=== PATIENT | male | born 1940 | race Two or more races ===

== ENCOUNTER 2016-03-07 06:00 | Emergency (ER) | payer MEDICARE ==
[~2016-03-07] VITALS: Ht 172.7 cm; Wt 85.7 kg
[2016-03-07 06:55] VITALS: BP 155/77
== END 2016-03-07 08:24 | disposition home or self-care (01) ==
LOC: ER 06:08
DX: G89.29 Other chronic pain (principal); M54.2 Cervicalgia; E11.9 Type 2 diabetes mellitus without complications; M19.93 Secondary osteoarthritis, unspecified site
CPT/HCPCS: 72050

== ENCOUNTER 2024-10-24 09:43 | Inpatient (IN) | payer OTHER ==
[~2024-10-24] VITALS: Ht 172.7 cm; Wt 79.7 kg
--- NOTE | 2024-10-24 09:57 | ED.PDOC ---
SOB-HPI HPI Comments This is a 84 year old male presenting to the ED with chief complaint of SOB. Patient reports that he has been experiencing SOB at rest for the past week. Patient denies any chest pain, cough, wheezing, dizziness, N/V, headache, or syncope. Chief Complaint: Shortness of Breath Time Seen by MD: 09:55 Primary Care Provider: OOT Reviewed notes: Nurses Notes, Medications, Allergies Information Source: Patient Mode of Arrival: Ambulatory Severity: Moderate Timing: Hours Duration: Since onset Context: At Rest PE Risk Factors: None History of: None Prehospital treatment: None Modifying Factors: Nothing Associated Signs and Symptoms: None Past Medical History PAST MEDICAL HISTORY: DM Surgical History: Denies all surgeries Family History Family History: Reviewed,noncontributory to illness, Unknown Social History Smoker: Non-Smoker Alcohol: Denies ETOH Use Drugs: Denies Drug Use Lives In: Home Constitutional: denies: chills, diaphoresis, fatigue, fever, malaise, sweats, weakness, others EENTM: denies: blurred vision, double vision, ear bleeding, ear discharge, ear drainage, ear pain, ear ringing, eye pain, eye redness, hearing loss, mouth pain, mouth swelling, nasal discharge, nose bleeding, nose congestion, nose pain, photophobia, tearing, throat pain, throat swelling, voice changes, others Respiratory: reports: SOB at rest, shortness of breath; denies: cough, hemoptysis, orthopnea, SOB with excertion, stridor, wheezing, others Cardiovascular: denies: chest pain, dizzy spells, diaphoresis, Dyspnea on exertion, edema, irregular heart beat, left arm pain, lightheadedness, palpitations, PND, syncope, others Gastrointestinal: denies: abdomen distended, abdominal pain, blood streaked bowels, constipated, diarrhea, dysphagia, difficulty swallowing, hematemesis, melena, nausea, poor appetite, poor fluid intake, rectal bleeding, rectal pain, vomiting, others Genitourinary: denies: burning, dysuria, flank pain, frequency, hematuria, incontinence, penile discharge, penile sore, pain, testicle pain, testicle swelling, urgency, others Neurological: denies: dizziness, fainting, headache, left sided numbness, left sided weakness, numbness, paresthesia, pre-existing deficit, right sided numbness, right sided weakness, seizure, speech problems, tingling, tremors, weakness, others Musculoskeletal: denies: back pain, gout, joint pain, joint swelling, muscle pain, muscle stiffness, neck pain, others Integumetry: denies: bruises, change in color, change in hair/nails, dryness, laceration, lesions, lumps, rash, wounds, others Allergic/Immunocompromised: denies: Difficulty Healing, Frequent Infections, Hives, Itching, others Hematologic/Lymphatic: denies: anemia, blood clots, easy bleeding, easy bruising, swollen glands, others Endocrine: denies: excessive hunger, excessive sweating, excessive thirst, excessive urination, flushing, intolerance to cold, intolerance to heat, unexplained weight gain, unexplained weight loss, others Psychiatric: denies: anxiety, bipolar disorder, depression, hopeless, panic disorder, schizophrenia, sleepless, suicidal, others All Other Systems: Reviewed and Negative Physical Exam General Appearance: Moderate Distress, Normal HEENT: Normal ENT Inspection, Pharynx Normal, TMs Normal Neck: Full Range of Motion, Non-Tender, Normal, Normal Inspection Respiratory: Chest Non-Tender, No Accessory Muscle Use, No Respiratory Distress Cardiovascular: Bradycardia, No Edema, No JVD, No Murmur, No Gallop, Normal Peripheral Pulses Breast Exam: Deferred Gastrointestinal: No Organomegaly, Non Tender, No Pulsatile Mass, Normal Bowel Sounds, Soft Genitalia: Deferred Pelvic: Deferred Rectal: Deferred Extremities: No calf tenderness, Normal capillary refill, Normal range of motion, Non-tender, No pedal edema Musculoskeletal : Apperance: Normal Neurologic: Alert, herd tester II-XII nml as Tested, No Motor Deficits, Normal Affect, Normal Mood, No Sensory Deficits Cerebellar Function: NOT DONE Reflexes: NOT DONE Skin: Dry, Normal Color, Warm Peripheral Pulses: 3+ Radial (R), 3+ Radial (L) Lymphatic: No Adenopathy EKG EKG : Pulse Rate (adult): 55 [place]: Normal Cardiac Rhythm: NSR Block: None Hypertrophy: None ST: Normal Was a procedure done? Was a procedure done?: No Differential Dx Differential Diagnosis: Anxiety, Asthma, Bronchitis, CHF, COPD X-Ray, Labs, Meds, VS Vital Signs Date Time Temp Pulse Resp B/P (MAP) Pulse Ox O2 Delivery O2 Flow Rate FiO2 10/24/24 10:03 55 10/24/24 10:01 55 10/24/24 09:44 97.8 53 16 135/51 100 97.8 Lab Test 10/24/24 11:11 10/24/24 10:13 Range/Units Troponin I High Sensitivity 4 3 L </=54 ng/L White Blood Count 7.4 4.4-10.8 10^3/uL Red Blood Count 4.92 4.5-5.90 10^6/uL Hemoglobin 11.3 L 13.5-17.5 g/dL Hematocrit 36.0 L 41.0-53.0 % Mean Corpuscular Volume 73.2 L 80.0-100.0 fL Mean Corpuscular Hemoglobin 23.0 L 28.0-32.0 pg Mean Corpuscular Hemoglobin Concent 31.3 L 32.0-36.0 g/dL Red Cell Distribution Width 17.4 H 11.8-14.3 % Platelet Count 366 140-450 10^3/uL Mean Platelet Volume 7.6 6.9-10.8 fL Neutrophils (%) (Auto) 71.8 37.0-80.0 % Lymphocytes (%) (Auto) 18.7 10.0-50.0 % Monocytes (%) (Auto) 8.3 0.0-12.0 % Eosinophils (%) (Auto) 0.7 0.0-7.0 % Basophils (%) (Auto) 0.5 0.0-2.0 % Neutrophils # (Auto) 5.3 1.6-8.6 10 ^3/uL Lymphocytes # (Auto) 1.4 0.4-5.4 10 ^3/uL Monocytes # (Auto) 0.6 0-1.3 10 ^3/uL Eosinophils # (Auto) 0.1 0-0.8 10 ^3/uL Basophils # (Auto) 0 0-0.2 10 ^3/uL Nucleated Red Blood Cells 0.1 % Sodium Level 136 136-145 mmol/L Potassium Level 4.7 3.5-5.1 mmol/L Chloride Level 103 98-107 mmol/L Carbon Dioxide Level 23 20-31 mmol/L Anion Gap 10 5-15 Blood Urea Nitrogen 24 H 9-23 mg/dL Creatinine 1.38 H 0.700-1.30 mg/dL Glomerular Filtration Rate Calc 51 >90 mL/min BUN/Creatinine Ratio 17.4 10.0-20.0 Serum Glucose 245 H 74-106 mg/dL Hemoglobin A1c 11.0 H <5.7 % A1C Calcium Level 9.3 8.7-10.4 mg/dL [facility] [address] [place] [id number] Ph: [phone] DIAGNOSTIC IMAGING Diagnostic Imaging Report : [id number] Signed PATIENT: MICHELLE CAZARES ACCT: [id number] UNIT: [id number] : 1940 LOC: ER ROOM / BED: / AGE / SEX: 84 / M ADM STATUS: REG ER SERVICE 1001 ORDERING PHYSICIAN: MILLA CLARK MD PROCEDURE(s): CXRP - CHEST PORTABLE REASON: sob ORDER NUMBER(s): [id number], ACCESSION NUMBER(s): [id number] EXAM: XY CHEST PORTABLE HISTORY: sob COMPARISON: None TECHNIQUE: Portable AP view of the chest was performed. FINDINGS: No pneumothorax, consolidative infiltrates, or pulmonary edema. The heart is not enlarged. There is thoracic degenerative disc disease. There is slight thoracic scoliosis. IMPRESSION: No acute intrathoracic process. ATED BY: PETER AVILEZ MD DICTATED DATE/TIME: 10/24/24 1040 SIGNED BY: PETER AVILEZ MD SIGNED DATE/TIME: 10/24/24 1040 CC: Patient alert. Complaining of shortness a breath. Chest x-ray reviewed does not show any acute process. WBC within normal limits. Cardiac marker within normal limits. Heart rate is on the low side. Possibly from beta-sergo. Blood sugar elevated. Kidney function elevated. Explained to the patient. Continue monitoring. Time of 1ST Reevaluation: 10:55 Reevaluation 1ST: Unchanged Patient Education/Counseling: Diagnosis, Treatment Family Education/Counseling: No Family Present SEPSIS Sepsis Screen Date sepsis recognized/suspect: Oct 24, 2024 Time Sepsis recognized/suspect: 0947 Recent Procedure: No On Antibiotic Therapy: No Respiratory Rate >20: No Heart Rate >90: No Temp<36 C (96.8 F) or >38.3 C: No SBP <90 or MAP <65 mmHG: No New Acute Mental Status Change: No Is the patient on CPAP, BIPAP,: No Physician Orders Chest Portable (10/24/24 10:01) Vital Signs Date Time Temp Pulse Resp B/P (MAP) Pulse Ox O2 Delivery O2 Flow Rate FiO2 10/24/24 10:03 55 10/24/24 10:01 55 10/24/24 09:44 97.8 53 16 135/51 100 97.8 Laboratory Tests Test 10/24/24 10:13 White Blood Count 7.4 10^3/uL (4.4-10.8) Departure 1 Departure Time of Disposition: 14:26 Impression: Primary Impression: Bradycardia Additional Impression: Hypertensive cardiomyopathy Qualified Codes: I11.0 - Hypertensive heart disease with heart failure; I43 - Cardiomyopathy in diseases classified elsewhere Disposition: ADMITTED INPATIENT Admit to: Med Surg Condition: Guarded Critical Care Note Critical Care Time?: Yes (90 min-critical care time only) Stability Stability form required: No Heart Score Heart Score: Heart Score Response (Comments) Value History Slightly Suspicious 0 EKG Normal 0 Age >65 2 Risk Factors 1 or 2 risk factors 1 Troponin Normal limit 0 Total 3 I personally scribed for MILLA CLARK MD ([email or web address]) on 10/24/24 at 09:57. Electronically submitted by Jeyson Mills ([email or web address]). I personally scribed for MILLA CLARK MD ([email or web address]) on 10/24/24 at 10:03. Electronically submitted by Jeyson Mills ([email or web address]). I personally scribed for MILLA CLARK MD ([email or web address]) on 10/24/24 at 10:47. Electronically submitted by Jeyson Mills ([email or web address]). MILLA CLARK MD Oct 24, 2024 09:57
--- NOTE | 2024-10-24 10:02 | ECG ---
[facility], [place] Test Date: 2024-10-24 Test Time: 10:01:15 Pat Name: MICHELLE CAZARES Department: ED Room: 0222T Gender: M [employer] Gr[employer] Tool: NELDA : 1940 Requested By: EMERGENCY EMERGENCY Order Number: [id number] Reading MD: Erick Cassidy Measurements Intervals [place] Rate: 55 P: 15 WY: 192 QRS: 29 QRSD: 97 T: 54 QT: 432 QTc: 414 Interpretive Statements Sinus rhythm Electronically Signed On 10-25-2024 16:43:19 PDT by Erick Cassidy Please click the below link to view image of tracing.
[2024-10-24 10:34] LABS: Chloride 103 mmol/L (98-107); Potassium 4.7 mmol/L (3.5-5.1)
[2024-10-24 10:35] LABS: Anion Gap 10 (5-15); Calcium 9.3 mg/dL (8.7-10.4); Carbon Dioxide 23 mmol/L (20-31)
[2024-10-24 10:36] LABS: Hematocrit 36.0 % (41.0-53.0); Hemoglobin 11.3 g/dL (13.5-17.5); Mean Corpuscular Hemoglobin 23.0 pg (28.0-32.0); Mean Corpuscular Volume 73.2 fL (80.0-100.0); Nucleated Red Blood Cells % 0.1 %; Sodium 136 mmol/L (136-145)
[2024-10-24 10:40] LABS: BUN/Creatinine Ratio 17.4 (10.0-20.0)
[2024-10-24 10:41] LABS: Blood Urea Nitrogen 24 mg/dL (9-23); Glucose 245 mg/dL (74-106)
--- NOTE | 2024-10-24 10:43 | DVH ---
EXAM: XY CHEST PORTABLE HISTORY: sob COMPARISON: None TECHNIQUE: Portable AP view of the chest was performed. FINDINGS: No pneumothorax, consolidative infiltrates, or pulmonary edema. The heart is not enlarged. There is t horacic degenerative disc disease. There is slight thoracic scoliosis. IMPRESSION: No acute intrathoracic process.
[2024-10-24] MEDS ORDERED: ATOR40TA52 PO (16:44)
[2024-10-24] MEDS ORDERED: GABA-1250 PO (16:44)
[2024-10-24] MEDS ORDERED: TICA90TA PO (16:44)
[2024-10-24] MEDS ORDERED: AMLO1TAB23 PO (16:44)
[2024-10-24] MEDS ORDERED: AMIO200T13 PO (16:44)
[2024-10-24] MEDS ORDERED: ONDANSETRON HCL 4 MG/2 ML VIAL IV PRN (16:45)
[2024-10-24] MEDS ORDERED: ACETAMINOPHEN 325 MG TAB PO PRN (16:45)
[2024-10-24] MEDS ORDERED: DEXTROSE (50%) 50ML SYRG IV PRN (17:00)
--- NOTE | 2024-10-24 17:09 | DVHHP2 ---
History of Present Illness Reason for Visit: Shortness of breath History of Present Illness Robin Oswald is an 84-year-old male with past medical history of diabetes and PTCA x1 in December of 2023 at [facility] who presents to the ED with shortness of breath that started 2 weeks ago. Patient reports that it has been progressively getting worse and worse when lying down. Patient reports that he is compliant with his medications. Patient denies any recent trauma or injury, recent sick contacts, recent travels, recent ingestion of spoiled food, chest pain, fever, chills, lightheadedness, weakness, dizziness, abdominal pain, nausea, vomiting, diarrhea, or urinary symptoms. Patient is and friend at the chair side. Endocrine: Diabetes Past Surgical History: Other (PTCA x1) Family History: None Smoke: No ALCOHOL: none Drugs: None Lives: with Family Domestic Violence: Neg Review of Systems Respiratory: Shortness of breath Allergies: Coded Allergies: NO KNOWN ALLERGIES (Unverified , 03/07/16) Exam Vital Signs Vital Signs Date Time Temp Pulse Resp B/P (MAP) Pulse Ox O2 Delivery O2 Flow Rate FiO2 10/24/24 10:03 55 10/24/24 09:44 97.8 16 135/51 100 97.8 General Appearance: Alert, Oriented X3, Cooperative, No acute distress HEENT: Atraumatic, PERRLA, EOMI, Mucous membr. moist/pink Respiratory: Clear to auscultation, Normal air movement Cardiovascular: Normal S1, Normal S2, No murmurs Abdominal: Normal bowel sounds, Soft Extremities: No clubbing, No cyanosis, No edema, Normal pulses, No tenderness/swelling Skin: No rashes, No breakdown, No significant lesion Neuro: Normal gait, Normal speech, Strength at 5/5 X4 ext, Normal tone, Sensation intact Psych/Mental Status: Mental status NL, Mood NL Labs/Xrays Labs Test 10/24/24 11:11 10/24/24 10:13 Range/Units Troponin I High Sensitivity 4 </=54 ng/L White Blood Count 7.4 4.4-10.8 10^3/uL Red Blood Count 4.92 4.5-5.90 10^6/uL Hemoglobin 11.3 L 13.5-17.5 g/dL Hematocrit 36.0 L 41.0-53.0 % Mean Corpuscular Volume 73.2 L 80.0-100.0 fL Mean Corpuscular Hemoglobin 23.0 L 28.0-32.0 pg Mean Corpuscular Hemoglobin Concent 31.3 L 32.0-36.0 g/dL Red Cell Distribution Width 17.4 H 11.8-14.3 % Platelet Count 366 140-450 10^3/uL Mean Platelet Volume 7.6 6.9-10.8 fL Neutrophils (%) (Auto) 71.8 37.0-80.0 % Lymphocytes (%) (Auto) 18.7 10.0-50.0 % Monocytes (%) (Auto) 8.3 0.0-12.0 % Eosinophils (%) (Auto) 0.7 0.0-7.0 % Basophils (%) (Auto) 0.5 0.0-2.0 % Neutrophils # (Auto) 5.3 1.6-8.6 10 ^3/uL Lymphocytes # (Auto) 1.4 0.4-5.4 10 ^3/uL Monocytes # (Auto) 0.6 0-1.3 10 ^3/uL Eosinophils # (Auto) 0.1 0-0.8 10 ^3/uL Basophils # (Auto) 0 0-0.2 10 ^3/uL Nucleated Red Blood Cells 0.1 % Sodium Level 136 136-145 mmol/L Potassium Level 4.7 3.5-5.1 mmol/L Chloride Level 103 98-107 mmol/L Carbon Dioxide Level 23 20-31 mmol/L Anion Gap 10 5-15 Blood Urea Nitrogen 24 H 9-23 mg/dL Creatinine 1.38 H 0.700-1.30 mg/dL Glomerular Filtration Rate Calc 51 >90 mL/min BUN/Creatinine Ratio 17.4 10.0-20.0 Serum Glucose 245 H 74-106 mg/dL Calcium Level 9.3 8.7-10.4 mg/dL EXAM: XY CHEST PORTABLE HISTORY: sob COMPARISON: None TECHNIQUE: Portable AP view of the chest was performed. FINDINGS: No pneumothorax, consolidative infiltrates, or pulmonary edema. The heart is not enlarged. There is thoracic degenerative disc disease. There is slight thoracic scoliosis. IMPRESSION: No acute intrathoracic process. SEPSIS Sepsis Screen Date sepsis recognized/suspect: Oct 24, 2024 Time Sepsis recognized/suspect: 946 Recent Procedure: No On Antibiotic Therapy: No Respiratory Rate >20: No Heart Rate >90: No Temp<36 C (96.8 F) or >38.3 C: No SBP <90 or MAP <65 mmHG: No New Acute Mental Status Change: No Is the patient on CPAP, BIPAP,: No Physician Orders Chest Portable (10/24/24 10:01) Vital Signs Date Time Temp Pulse Resp B/P (MAP) Pulse Ox O2 Delivery O2 Flow Rate FiO2 10/24/24 10:03 55 10/24/24 10:01 55 10/24/24 09:44 97.8 53 16 135/51 100 97.8 Laboratory Tests Test 10/24/24 10:13 White Blood Count 7.4 10^3/uL (4.4-10.8) Assessment/Plan Assessment/Plan Assessment Dyspnea Sinus bradycardia ANALILIA likely prerenal History of PTCA x1 in December of 2023 at [facility] History of diabetes Plan Admit to tele Monitor Troponin noted negative x2 Negative chest x-ray EKG D-dimer UA Hemoglobin A1c ISS and Accu-Cheks Diet Home medications reconciled DVT prophylaxis-not indicated patient ambulating PUD prophylaxis-not indicated no history of GERD or GI bleed Discussed plan of care with patient, patient's , and nurse Rounding hospitalist consider Cardiology consult if Echo abnormal [id number] Preventive counseling healthy eating habits, physical activity, and regular checkups Plan discussed with: Patient Date of Service: Oct 24, 2024 Billing Provider: AMY GATICA Common Visit Codes: [id number] INP/OBS CARE (HIGH) Secondary Visit Codes: [id number] COUNSELING IND AMY GATICA Oct 24, 2024 17:09
[2024-10-24] MEDS: ACCU-CHEK COMFORT CURVE STRIP VI SCH (17:32)
[2024-10-24] MEDS: InsuLIN REG 1unit/0.01ml Soln (100units/ml) SC SCH (17:36)
[2024-10-24 18:00] VITALS: PULSE 64; RESP 18; O2SAT 97
[2024-10-24 20:00] VITALS: PULSE 61
[2024-10-24 21:00] VITALS: BP 148/77; PULSE 67; TEMP 98.1; O2SAT 96
[2024-10-24] MEDS: ATORVASTATIN 20 MG TAB PO SCH (21:25)
[2024-10-24] MEDS: TICAGRELOR 90 MG TAB PO SCH (21:25)
[2024-10-24] MEDS: GABAPENTIN 300 MG CAP PO SCH (21:25)
[2024-10-24 22:02] LABS: Urine Protein, UAD Negative (Negative)
[2024-10-25] VITALS (8 sets, daily range): BP systolic 108–152; BP diastolic 60–71; PULSE 44–68; RESP 16–20; TEMP 97.2–98; O2SAT 94–97
[2024-10-25 07:03] LABS: Alanine Aminotransferase 16 U/L (7-40); Albumin 4.3 g/dL (3.2-4.8); Alkaline Phosphatase 77 U/L (46-116); Anion Gap 9 (5-15); BUN/Creatinine Ratio 15.4 (10.0-20.0); Bilirubin, Total 0.6 mg/dL (0.2-1.0); Blood Urea Nitrogen 20 mg/dL (9-23); Calcium 8.9 mg/dL (8.7-10.4); Carbon Dioxide 24 mmol/L (20-31); Chloride 102 mmol/L (98-107); Potassium 4.6 mmol/L (3.5-5.1); Total Protein 7.1 g/dL (5.7-8.2)
[2024-10-25 07:06] LABS: Hemoglobin 10.6 g/dL (13.5-17.5)
[2024-10-25 07:07] LABS: Glucose 171 mg/dL (74-106); Sodium 135 mmol/L (136-145)
[2024-10-25 07:09] LABS: Hematocrit 33.3 % (41.0-53.0); Mean Corpuscular Hemoglobin 23.5 pg (28.0-32.0); Mean Corpuscular Volume 73.7 fL (80.0-100.0); Nucleated Red Blood Cells % 0.4 %
[2024-10-25] MEDS: AMIODARONE HCL 200 MG TAB PO SCH (09:23)
--- NOTE | 2024-10-25 15:55 | DVHSR ---
APPROVED REPORT EXAM: Two-dimensional and M-mode echocardiogram with Doppler and color Doppler. Blood Pressure: 112/68 mmHg INDICATION PTCA x 1 SOB RISK FACTORS Height: 5'8", Weight: 175 DIMENSIONS LVDd4.7 (3.8-5.7cm)LA (2D)4.3 (1.9-4.0cm)Aortic Root3.6 (2.0-3.7cm) LVDs3.2 (2.5-4.0cm)LA (MM) (1.9-4.0cm)Aortic Cusp Exc1.2 (1.5-2.0cm) EF (%) 55.0 (55-70%)Rt. Atrium4.3 (1.9-4.0cm)Asc. Aorta cm IVSd1.1 (0.7-1.1cm)RV (D)4.3 (1.8-2.4cm) PWd1.0 (0.7-1.1cm) Mitral Valve MitralMitral Stenosis E wave0.70m/sMV Mean GR.mmHg A wave0.67m/sMV Peak GR.mmHg E/A ratio1.02D MVAcm2 DECEL [id number] 1/2 Timems Aortic Valve Aortic ValveAortic Stenosis V10.92m/Rosa Mean GR.4mmHg V21.33m/Rosa Peak GR.7mmHg LVOT Diameter2.0 (1.8-2.4cm)Doppler AVA2.17cm2 AI P 1/2 [id number] Pulmonic Valve V21.33m/s Tricuspid Valve TR Velocity2.55m/s [id number] Conclusion Technically good study. Sinus rhythm. Biatrial enlargement. Aortic root enlargement. Concentric LVH. Valves are normal. EF of 60% with normal RV function. Trace aortic insufficiency. No pericardial effusion masses or vegetations.
--- NOTE | 2024-10-25 17:33 | DVHPN2 ---
Subjective 84-year-old male with a known history of CAD status post PCI with a BUN drug- eluting stent, hypertension who initially presented to the hospital with shortness of breaths found to have bradycardia. Patient denies to be on any AV heather agents but does take amiodarone 200 mg p.o. daily. 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 Medications Current Medications Medications Dose Ordered Sig/Rocio Route Start Time Stop Time Status Last Admin Dose Admin Ondansetron HCl 4 mg Q4HP PRN IV 10/24/24 16:45 Acetaminophen 650 mg Q6HP PRN PO 10/24/24 16:45 Amiodarone HCl 200 mg DAILY PO 10/25/24 10:00 Gabapentin 300 mg BID PO 10/24/24 22:00 10/25/24 09:22 300 MG Ticagrelor 90 mg BID PO 10/24/24 22:00 10/25/24 09:23 90 MG Atorvastatin Calcium 40 mg HS PO 10/24/24 22:00 10/24/24 21:25 40 MG Amlodipine Besylate 10 mg DAILY PO 10/25/24 10:00 10/25/24 09:22 10 MG Diagnostic Test (Pha) 1 strip ACHS 10/24/24 17:00 10/25/24 11:30 1 STRIP Insulin Human Regular ACHS SC 10/24/24 17:00 10/25/24 12:17 6 UNITS Dextrose 50 ml UD PRN IV 10/24/24 17:00 Laboratory Results Laboratory Tests 10/25/24 06:18 Chemistry Test 10/25/24 06:18 Albumin 4.3 g/dL (3.2-4.8) Calcium Level 8.9 mg/dL (8.7-10.4) Total Protein 7.1 g/dL (5.7-8.2) Coagulation Test 10/24/24 17:39 D-Dimer, Quantitative 0.30 mg/L FEU (0.0-0.49) LFT Test 10/25/24 06:18 Alanine Aminotransferase (ALT) 16 U/L (7-40) Alkaline Phosphatase 77 U/L (46-116) Aspartate Amino Transferase (AST) 16 U/L (13-40) Total Bilirubin 0.6 mg/dL (0.2-1.0) Urinalysis Test 10/24/24 20:21 Urine Color Light-yellow (Yellow) Urine Clarity Clear (Clear) Urine pH 6.0 (5.0-9.0) Urine Specific [place] 1.025 (1.001-1.035) Urine Protein Negative (Negative) Urine Ketones Negative (Negative) Urine Blood Negative /uL (Negative) Urine Nitrite Negative (Negative) Urine Bilirubin Negative (Negative) Urine Urobilinogen Normal mg/dL (Negative) Urine Leukocyte Esterase Negative /uL (Negative) Urine RBC <1 /hpf (0 - 3) Urine Microscopic WBC < 1 /HPF (0-3) Urine Squamous Epithelial Cells Few /hpf (<5) Urine Bacteria None seen /hpf (None Seen) Urine Glucose 4+ mg/dL (Normal) H Assessment/Plan Assessment/Plan 84-year-old male with a known history of CAD status post PCI, diabetes mellitus type 2, hypertension initially presented to the hospital with a shortness of breaths found to have 1. Bradycardia suspect secondary to amiodarone, patient denies to be on AV heather agents 2. CAD status post PCI with a burden drug-eluting stent 3. Diabetes mellitus type 2 4. Hypertension 5. Possible sleep apnea as patient's heart rate drops while he sleeps -keep holding amiodarone, avoid AV heather agents, monitor on telemetry, 2D echo cardiology consultation. Plan discussed with: Patient Date of Service: Oct 25, 2024 Billing Provider: BK SIMS MD Common Visit Codes: [id number] INP/OBS CARE(MOD) KB SIMS MD Oct 25, 2024 17:33
[2024-10-26] VITALS (7 sets, daily range): BP systolic 108–138; BP diastolic 51–73; PULSE 47–62; RESP 16–19; TEMP 97.5–98.3; O2SAT 96–100
--- NOTE | 2024-10-26 17:26 | DVHDS2 ---
Discharge Summary Date of Admission Oct 24, 2024 at 16:34 Date of Discharge: Oct 26, 2024 Labs/Diagnostic Data: Laboratory Results Test 10/26/24 16:58 10/25/24 06:18 10/24/24 20:21 10/24/24 17:39 POC Glucose 397 mg/dl (70-106) White Blood Count 6.6 10^3/uL (4.4-10.8) Red Blood Count 4.52 10^6/uL (4.5-5.90) Hemoglobin 10.6 g/dL (13.5-17.5) Hematocrit 33.3 % (41.0-53.0) Mean Corpuscular Volume 73.7 fL (80.0-100.0) Mean Corpuscular Hemoglobin 23.5 pg (28.0-32.0) Mean Corpuscular Hemoglobin Concent 31.8 g/dL (32.0-36.0) Red Cell Distribution Width 17.0 % (11.8-14.3) Platelet Count 336 10^3/uL (140-450) Mean Platelet Volume 7.5 fL (6.9-10.8) Neutrophils (%) (Auto) 62.5 % (37.0-80.0) Lymphocytes (%) (Auto) 25.0 % (10.0-50.0) Monocytes (%) (Auto) 9.9 % (0.0-12.0) Eosinophils (%) (Auto) 1.3 % (0.0-7.0) Basophils (%) (Auto) 1.3 % (0.0-2.0) Neutrophils # (Auto) 4.1 10 ^3/uL (1.6-8.6) Lymphocytes # (Auto) 1.6 10 ^3/uL (0.4-5.4) Monocytes # (Auto) 0.7 10 ^3/uL (0-1.3) Eosinophils # (Auto) 0.1 10 ^3/uL (0-0.8) Basophils # (Auto) 0.1 10 ^3/uL (0-0.2) Nucleated Red Blood Cells 0.4 % Sodium Level 135 mmol/L (136-145) Potassium Level 4.6 mmol/L (3.5-5.1) Chloride Level 102 mmol/L (98-107) Carbon Dioxide Level 24 mmol/L (20-31) Anion Gap 9 (5-15) Blood Urea Nitrogen 20 mg/dL (9-23) Creatinine 1.30 mg/dL (0.700-1.30) Glomerular Filtration Rate Calc 55 mL/min (>90) BUN/Creatinine Ratio 15.4 (10.0-20.0) Serum Glucose 171 mg/dL (74-106) Calcium Level 8.9 mg/dL (8.7-10.4) Total Bilirubin 0.6 mg/dL (0.2-1.0) Aspartate Amino Transferase (AST) 16 U/L (13-40) Alanine Aminotransferase (ALT) 16 U/L (7-40) Alkaline Phosphatase 77 U/L (46-116) Total Protein 7.1 g/dL (5.7-8.2) Albumin 4.3 g/dL (3.2-4.8) Urine Color Light-yellow (Yellow) Urine Clarity Clear (Clear) Urine pH 6.0 (5.0-9.0) Urine Specific [place] 1.025 (1.001-1.035) Urine Protein Negative (Negative) Urine Ketones Negative (Negative) Urine Blood Negative /uL (Negative) Urine Nitrite Negative (Negative) Urine Bilirubin Negative (Negative) Urine Urobilinogen Normal mg/dL (Negative) Urine Leukocyte Esterase Negative /uL (Negative) Urine RBC <1 /hpf (0 - 3) Urine Microscopic WBC < 1 /HPF (0-3) Urine Squamous Epithelial Cells Few /hpf (<5) Urine Bacteria None seen /hpf (None Seen) Urine Glucose 4+ mg/dL (Normal) D-Dimer, Quantitative 0.30 mg/L FEU (0.0-0.49) Test 10/24/24 11:11 10/24/24 10:13 Troponin I High Sensitivity 4 ng/L (</=54) Hemoglobin A1c 11.0 % A1C (<5.7) Other Laboratory Tests 10/25/24 06:18 Brief Hx & Hospital Course: 84-year-old male with a known history of CAD status post PCI, diabetes mellitus type 2, hypertension initially presented to the hospital with a shortness of breaths found to have bradycardia suspected secondary to amiodarone. Patient denies taking any beta sergo or in any AV heather agents. Patient was monitored on telemetry. Patient does have known history of CAD status post PCI. Patient is currently heart rate is between 57 to 60+. Patient is stable to be discharged. Patient is requesting to go home as he is requesting cardiology follow up as an outpatient. Also patient may need sleep study as an outpatient as his heart rate dropped into 40s when he sleeps. Condition at Discharge: Stable Final Diagnosis/Problems List 84-year-old male with a known history of CAD status post PCI, diabetes mellitus type 2, hypertension initially presented to the hospital with a shortness of breaths found to have 1. Bradycardia suspect secondary to amiodarone, patient denies to be on AV heather agents 2. CAD status post PCI with a burden drug-eluting stent 3. Diabetes mellitus type 2 4. Hypertension 5. Possible sleep apnea as patient's heart rate drops while he sleeps Discharge Disposition: Home SNF Discharge Will this Physician continue t: No Discharge Instruct/Medications Diet: Cardiac 2g Na,low cholest Diet comment: 1800 ADA diet Activity: No Restrictions, As Tolerated Follow Up/Referral: Follow up with the PCP in 1-2 weeks Follow up with the Pulmonary as an outpatient for sleep study, Jos Handley. Follow up with the videotape sales representative Dr Cassidy in 1 week Medications: Resume home medication, discontinue amiodarone. Continued Medications: Amlodipine Besylate (Amlodipine Besylate) 10 Mg Tab 1 TAB PO Atorvastatin Calcium (Atorvastatin Calcium) 40 Mg Tab 1 TAB PO DAILY Gabapentin (Gabapentin) 300 Mg Cap CAP PO Ticagrelor Base (Brilinta) 90 Mg Tab 1 TAB PO BID Discontinued Medications: Amiodarone HCl (Amiodarone HCl) 200 Mg Tab 1 TAB PO DAILY Scheduled Amiodarone HCl (Amiodarone HCl), 1 TAB PO DAILY, (Reported) Atorvastatin Calcium (Atorvastatin Calcium), 1 TAB PO DAILY, (Reported) Ticagrelor Base (Brilinta), 1 TAB PO BID, (Reported) Miscellaneous Medications Amlodipine Besylate (Amlodipine Besylate), 1 TAB PO, (Reported) Gabapentin (Gabapentin), CAP PO, (Reported) Discharge Statement: "Patient was advised to return to the ER or call 911 if any headaches, dizziness, shortness of breath, chest pain, abdominal pain, bleeding, fevers, or worsening of medical condition. Patient was counseled about treatment plan, medications, possible side effects, patientverbalized understanding. All questions were answered to the best of my ability. This discharge took greater then 30 minutes in planning, reviewing documentation, counseling the patient, and discussing with other team members." ASSESSMENT ASSESSMENT Assessment 84-year-old male with a known history of CAD status post PCI, diabetes mellitus type 2, hypertension initially presented to the hospital with a shortness of breaths found to have 1. Bradycardia suspect secondary to amiodarone, patient denies to be on AV heather agents 2. CAD status post PCI with a burden drug-eluting stent 3. Diabetes mellitus type 2 4. Hypertension 5. Possible sleep apnea as patient's heart rate drops while he sleeps Date of Service: Oct 26, 2024 Billing Provider: KB SIMS MD Common Visit Codes: 89527-CYE/OBS DISCH DAY >30min KB SIMS MD Oct 26, 2024 17:26
== END 2024-10-26 16:24 | disposition home or self-care (01) | DRG 310 ==
LOC: ER 09:43 → OVERFLOW 16:34 → TELE-CENTR 18:02
DX: R00.1 Bradycardia, unspecified (principal); I11.9 Hypertensive heart disease without heart failure; I43 Cardiomyopathy in diseases classified elsewhere; E11.9 Type 2 diabetes mellitus without complications; T46.2X5A Adverse effect of other antidysrhythmic drugs, initial encounter; I25.10 Atherosclerotic heart disease of native coronary artery without angina pectoris; G47.30 Sleep apnea, unspecified; Z98.61 Coronary angioplasty status; Z79.899 Other long term (current) drug therapy; Y92.89 Other specified places as the place of occurrence of the external cause
CPT/HCPCS: 36415; 71045; 80048; 80053; 81001; 82962; 83036; 84484; 85025; 85379; 93005; 93306; 99291; G0378; J1815